=== PATIENT | male | born 1975 | race Caucasian/White ===

== ENCOUNTER 2022-06-06 16:00 | Outpatient (RCR) | payer OTHER, SELFPAY ==
--- NOTE | 2022-05-04 17:12 | OT.OPOE ---
OT Outpatient Ortho Eval OT Outpatient Ortho Eval Start: 05/04/22 15:23 Freq: Status: Active Protocol: Document 05/04/22 15:23 LCN (Rec: 05/04/22 15:29 LCN Desktop) E-signed By Shante Ocampo, OTR/L, CLT OT OP Ortho Eval Details Type Type Eval Complexity Low Insurance Information Insurance Information [facility] History/Precautions Current Condition/Medical Diagnosis Referring Provider Timoteo Harman Treatment Diagnosis L elbow pain, lateral epicondylitis Date of Onset 04/26/22 Other Conditions H/O knee and shoulder surgeries. Fractured clavicles x 3. Most recent was January 2022 and was treated through [facility]. Same weekend pt sustained fall on L elbow, which is when he estimates when his pain actually started . 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 Perfroms lots of video meetins and in depth emails. Has 13 and 9 y/o children in [employer] circuit and hockey. Do a lot of travelling w sports, RV use. Works out 3-4 x/week with bike rides off road MTB and or rollers/indoor, row machine for distance. 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 Has L upper CET muscle bulk/medial margin pain and point tenderness at lateral epicondyle during sustained gripping on bike handles/managing inclines, lifting heavy loads, lifting bikes up onto racks. Pain Assessment Pain Present Pain Present Pain Reported Location L elbow Description Sharp,Throbbing,Pulling,With Movement Intensity 6 Edema Assessment Additional Information Comments Insert Cutter with R hand is 115#, L is 60# with 5/10 pn at lateral epicondyle. Pos 2 is 11# R and 55# L, similar pain pattern. 2/10 pain with L handed pinching. Herrera pinch 20 # R and 24# L. 3 pt pinch similar L pn with 24# R and 18 .5 # L. OT Objective Data Hand Hand Dominance Right Upper Extremity Special Tests Tenosynovitis Wrist Finklestein Test Negative Left,Negative Right Median Nerve-Carpal Tunnel Wrist Phalen Test Negative Left,Negative Right OT Problems Problems Problems Decreased Strength,Lifting, Gripping,Pinching Other Problems Writing,Computer Patient Potential Excellent Assessment Assessment Assessment Given Ebenezer's diagnosis of left lateral epicondylitis and ? difficulty with edema, pain and strength loss of L hand/ wrist/elbow he would benefit from skilled OT to address these areas. Occupational Therapy Treatment Plan - OP Potential Rehabilitation Potential Excellent Goals Goals In 8 weeks, pt will demonstrate:? 1) Decreased pn to <2/10 80% of the time with sustained gripping, carrying groceries, reading books and gripping/ riding. 2) I HEP for stretching, gradual strengthening and self mgmt strategies. 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 4) ??Pt to be fit with functional bracing (for wrist/ forearm) and use adaptive strategies to protect joint integrity to support less pain with ADL. Progress set Treatment Plan Treatment Plan Evaluation,Edema Control, Iontophoresis,Joint Mobilization,Manual Therapy, Splinting,Ultrasound, Therapeutic Exercise,Self-Care /Home Management,Education Expected Frequency 1-2x Week Expected Duration 6-8 Weeks Certification Certification I Certify That: Therapy Services Provided, Therapy Plan Established, Therapy Plan Reviewed
== END 2023-01-26 08:13 | disposition home or self-care (01) ==
PROVIDERS: PCP Physician Assistant Medical; Visit Provider Physician Assistant Medical
DX: M77.8 Other enthesopathies, not elsewhere classified (principal); M25.522 Pain in left elbow; M77.10 Lateral epicondylitis, unspecified elbow; Z51.89 Encounter for other specified aftercare
CPT/HCPCS: 97033; 97035; 97140; 97165; 97535

== ENCOUNTER 2023-05-17 09:02 | Outpatient (CLI) | payer OTHER, SELFPAY | END 2023-05-17 09:03 | disposition home or self-care (01) | LOC: NFLDREF 05-20 17:36 | PROVIDERS: PCP Physician Assistant Medical; Referring Provider Physician Assistant Medical; Visit Provider Physician Assistant Medical | DX: Z01.818 Encounter for other preprocedural examination (principal); Z00.00 Encounter for general adult medical examination without abnormal findings; R35.0 Frequency of micturition; Z13.6 Encounter for screening for cardiovascular disorders | CPT/HCPCS: 80053; 80061; 84443 ==

== ENCOUNTER 2023-05-26 09:56 | Outpatient (CLI) | payer OTHER, SELFPAY ==
--- NOTE | 2023-05-26 10:44 | W.ANESCHARGE ---
Anesthesia Charges Start Date/Time Anesthesia Start Date: 05/26/23 Anesthesia Start Time: 10:20 Stop Date/Time Anesthesia Stop Date: 05/26/23 Anesthesia Stop Time: 10:42
--- NOTE | 2023-05-26 10:53 | W.ANESCHARGE ---
Anesthesia Charges Start Date/Time Anesthesia Start Date: 05/26/23 Anesthesia Start Time: 10:20 Stop Date/Time Anesthesia Stop Date: 05/26/23 Anesthesia Stop Time: 10:42
== END 2023-05-26 09:57 | disposition home or self-care (01) ==
LOC: OP CLINIC 09:56
PROVIDERS: PCP Physician Assistant Medical; Visit Provider Internal Medicine
DX: Z12.11 Encounter for screening for malignant neoplasm of colon (principal)
CPT/HCPCS: 00811; 00812; 45378; J2704

== ENCOUNTER 2024-09-06 07:47 | Outpatient (CLI) | payer OTHER, SELFPAY | END 2024-09-06 07:48 | disposition home or self-care (01) | LOC: NFLDREF 09-13 02:33 | PROVIDERS: PCP Physician Assistant Medical; Referring Provider Physician Assistant Medical; Visit Provider Physician Assistant Medical | DX: Z13.220 Encounter for screening for lipoid disorders (principal); Z13.228 Encounter for screening for other metabolic disorders; Z13.29 Encounter for screening for other suspected endocrine disorder; Z12.5 Encounter for screening for malignant neoplasm of prostate | CPT/HCPCS: 80053; 80061; 84443; G0103 ==

== ENCOUNTER 2024-09-11 07:59 | Outpatient (CLI) | payer OTHER, SELFPAY | END 2024-09-11 08:00 | disposition home or self-care (01) | LOC: NFLDREF 09-14 02:31 | PROVIDERS: PCP Physician Assistant Medical; Referring Provider Physician Assistant Medical; Visit Provider Physician Assistant Medical | DX: R53.82 Chronic fatigue, unspecified (principal); Z13.21 Encounter for screening for nutritional disorder; Z13.29 Encounter for screening for other suspected endocrine disorder; Z13.0 Encounter for screening for diseases of the blood and blood-forming organs and certain disorders involving the immune mechanism | CPT/HCPCS: 82306; 82607; 82728; 84403 ==

== ENCOUNTER 2024-09-18 14:46 | Outpatient (CLI) | payer OTHER, SELFPAY ==
--- NOTE | 2024-09-18 15:00 | CRLHL7_ITS ---
For Patients: As a result of the Century Cures Act, medical imaging exams and procedure reports are released immediately into your electronic medical record. You may view this report before your referring provider. If you have questions, please contact your health care provider. INDICATION : Left scrotal mass TECHNIQUE : Testicular ultrasound grayscale color Doppler spectral arterial waveforms. FINDINGS : Testicles: No suspicious masses. Intact spectral arterial waveforms. Left epididymis: There is a large cyst with lobulation measuring 1.5 x 2.0 centimeters. Right epididymis: Unremarkable. Doppler: Intact color and spectral arterial waveforms in both testicles. IMPRESSION : Palpable left scrotal mass correlating to a incidental large left epididymal cyst. No other suspicious sonographic features. Dictated by Alejo Chew MD @ 09/19/2024 1:33:45 PM (Electronically Signed)
== END 2024-09-18 14:47 | disposition home or self-care (01) ==
LOC: US 14:46
PROVIDERS: PCP Physician Assistant Medical; Visit Provider Physician Assistant Medical
DX: N50.89 Other specified disorders of the male genital organs (principal); L72.0 Epidermal cyst
CPT/HCPCS: 76870; 93976